=== PATIENT | male | born 1980 | race Two or more races ===

== ENCOUNTER → 2016-07-26 | Outpatient (CLI) | payer BC ==
--- NOTE | 2016-07-26 11:11 | REP ---
SACRUM COCCYX, THREE VIEWS: HISTORY: Coccyalgia. There is no acute fracture or subluxation. The intervertebral discs are normal in height. IMPRESSION: There is no acute fracture or subluxation. Signed by Manny Matias MD 07/26/2016 11:13 A
== END ==
LOC: M LRY 10:32
PROVIDERS: ATTEND Physician Assistant Medical
DX: M53.3 Sacrococcygeal disorders, not elsewhere classified (principal)

== ENCOUNTER → 2017-07-23 | Outpatient (REF) | payer BC | LOC: M SFHCLERA 19:54 | DX: J02.9 Acute pharyngitis, unspecified (principal) ==